=== PATIENT | female | born 1960 | race Hispanic/Latino ===

== ENCOUNTER → 2020-01-20 | Outpatient (CLI) | payer MEDICAID ==
[~2020-01-20] MED LIST: HONEY 1 APPL/ML TUBE TP ONE; LIDOCAINE HCL 4% LTA SOL 4 ML VIAL TP ONE
[2020-01-20 13:17] VITALS: BP 145/121
== END | disposition home or self-care (01) ==
LOC: WHH 09:00
PROVIDERS: ATTEND Family Medicine
DX: T87.89 Other complications of amputation stump (principal); L89.892 Pressure ulcer of other site, stage 2; L97.822 Non-pressure chronic ulcer of other part of left lower leg with fat layer exposed; L89.890 Pressure ulcer of other site, unstageable; L97.812 Non-pressure chronic ulcer of other part of right lower leg with fat layer exposed; G35 Multiple sclerosis; Z74.01 Bed confinement status; Z93.6 Other artificial openings of urinary tract status; Y83.2 Surgical operation with anastomosis, bypass or graft as the cause of abnormal reaction of the patient, or of later complication, without mention of misadventure at the time of the procedure
CPT/HCPCS: 11042; 11045; A6213

== ENCOUNTER → 2020-02-03 | Outpatient (CLI) | payer MEDICAID ==
[~2020-02-03] MED LIST changes: -LIDOCAINE HCL 4% LTA SOL 4 ML VIAL TP ONE
[2020-02-03 12:55] VITALS: BP 102/68
== END | disposition home or self-care (01) ==
LOC: WHH 09:30
PROVIDERS: ATTEND Family Medicine
DX: T87.89 Other complications of amputation stump (principal); L89.893 Pressure ulcer of other site, stage 3; L89.890 Pressure ulcer of other site, unstageable; L89.152 Pressure ulcer of sacral region, stage 2; G35 Multiple sclerosis; Z74.01 Bed confinement status; Z93.6 Other artificial openings of urinary tract status; Y83.2 Surgical operation with anastomosis, bypass or graft as the cause of abnormal reaction of the patient, or of later complication, without mention of misadventure at the time of the procedure
CPT/HCPCS: 11042; 11045; A6213

== ENCOUNTER → 2020-03-02 | Outpatient (CLI) | payer MEDICAID ==
[~2020-03-02] MED LIST changes: -HONEY 1 APPL/ML TUBE TP ONE; +LIDOCAINE HCL 4% LTA SOL 4 ML VIAL TP ONE
== END | disposition home or self-care (01) ==
LOC: WHH 10:50
PROVIDERS: ATTEND Family Medicine
DX: T87.89 Other complications of amputation stump (principal); L89.890 Pressure ulcer of other site, unstageable; L89.893 Pressure ulcer of other site, stage 3; G35 Multiple sclerosis; Z74.01 Bed confinement status; Z89.612 Acquired absence of left leg above knee; Y83.5 Amputation of limb(s) as the cause of abnormal reaction of the patient, or of later complication, without mention of misadventure at the time of the procedure
CPT/HCPCS: 11042; A6021; A6197

== ENCOUNTER → 2020-03-16 | Outpatient (CLI) | payer MEDICAID ==
[~2020-03-16] MED LIST changes: +HONEY 1 APPL/ML TUBE TP ONE; -LIDOCAINE HCL 4% LTA SOL 4 ML VIAL TP ONE; +LIDOCAINE/PRILOCAINE CREAM 5GM TUBE TP ONE
== END | disposition home or self-care (01) ==
LOC: WHH 13:00
PROVIDERS: ATTEND Family Medicine
DX: T87.89 Other complications of amputation stump (principal); L89.892 Pressure ulcer of other site, stage 2; L97.826 Non-pressure chronic ulcer of other part of left lower leg with bone involvement without evidence of necrosis; L89.150 Pressure ulcer of sacral region, unstageable; L98.491 Non-pressure chronic ulcer of skin of other sites limited to breakdown of skin; L89.890 Pressure ulcer of other site, unstageable; L97.511 Non-pressure chronic ulcer of other part of right foot limited to breakdown of skin; L97.811 Non-pressure chronic ulcer of other part of right lower leg limited to breakdown of skin; L89.893 Pressure ulcer of other site, stage 3; G35 Multiple sclerosis; Z74.01 Bed confinement status
CPT/HCPCS: 11042; 11045; 17250; A6213; J3490

== ENCOUNTER → 2020-03-23 | Outpatient (CLI) | payer MEDICAID ==
[~2020-03-23] MED LIST changes: -HONEY 1 APPL/ML TUBE TP ONE; +LIDOCAINE HCL 4% LTA SOL 4 ML VIAL TP ONE; -LIDOCAINE/PRILOCAINE CREAM 5GM TUBE TP ONE
== END | disposition home or self-care (01) ==
LOC: WHH 13:00
PROVIDERS: ATTEND Family Medicine
DX: T87.89 Other complications of amputation stump (principal); L89.892 Pressure ulcer of other site, stage 2; L97.826 Non-pressure chronic ulcer of other part of left lower leg with bone involvement without evidence of necrosis; L89.150 Pressure ulcer of sacral region, unstageable; L98.491 Non-pressure chronic ulcer of skin of other sites limited to breakdown of skin; L89.890 Pressure ulcer of other site, unstageable; L97.511 Non-pressure chronic ulcer of other part of right foot limited to breakdown of skin; L97.811 Non-pressure chronic ulcer of other part of right lower leg limited to breakdown of skin; L89.893 Pressure ulcer of other site, stage 3; G35 Multiple sclerosis; Z74.01 Bed confinement status; Y83.2 Surgical operation with anastomosis, bypass or graft as the cause of abnormal reaction of the patient, or of later complication, without mention of misadventure at the time of the procedure
CPT/HCPCS: 11042; 11045; A6209

== ENCOUNTER → 2020-03-30 | Outpatient (CLI) | payer MEDICAID | END | disposition home or self-care (01) | LOC: WHH 13:25 | PROVIDERS: ATTEND Family Medicine | DX: T87.89 Other complications of amputation stump (principal); L89.892 Pressure ulcer of other site, stage 2; L97.826 Non-pressure chronic ulcer of other part of left lower leg with bone involvement without evidence of necrosis; L89.150 Pressure ulcer of sacral region, unstageable; L98.491 Non-pressure chronic ulcer of skin of other sites limited to breakdown of skin; L89.890 Pressure ulcer of other site, unstageable; L97.511 Non-pressure chronic ulcer of other part of right foot limited to breakdown of skin; L97.811 Non-pressure chronic ulcer of other part of right lower leg limited to breakdown of skin; L89.893 Pressure ulcer of other site, stage 3; G35 Multiple sclerosis; Z74.01 Bed confinement status; Y83.5 Amputation of limb(s) as the cause of abnormal reaction of the patient, or of later complication, without mention of misadventure at the time of the procedure | CPT/HCPCS: 11042; 11045; A6209 ×2; A6213 ==

== ENCOUNTER → 2020-04-13 | Outpatient (CLI) | payer MEDICAID | END | disposition home or self-care (01) | LOC: WHH 13:30 | PROVIDERS: ATTEND Family Medicine | DX: T87.89 Other complications of amputation stump (principal); L89.892 Pressure ulcer of other site, stage 2; L97.822 Non-pressure chronic ulcer of other part of left lower leg with fat layer exposed; L89.150 Pressure ulcer of sacral region, unstageable; L98.491 Non-pressure chronic ulcer of skin of other sites limited to breakdown of skin; L89.890 Pressure ulcer of other site, unstageable; L97.511 Non-pressure chronic ulcer of other part of right foot limited to breakdown of skin; L97.811 Non-pressure chronic ulcer of other part of right lower leg limited to breakdown of skin; L89.893 Pressure ulcer of other site, stage 3; G35 Multiple sclerosis; Z74.01 Bed confinement status; Y83.5 Amputation of limb(s) as the cause of abnormal reaction of the patient, or of later complication, without mention of misadventure at the time of the procedure | CPT/HCPCS: A6209 ×2; G0463 ==

== ENCOUNTER → 2020-05-22 | Outpatient (CLI) | payer MEDICAID ==
[~2020-05-22] MED LIST changes: +LIDOCAINE HCL 2% JELLY 5 ML TP ONE; -LIDOCAINE HCL 4% LTA SOL 4 ML VIAL TP ONE
== END | disposition home or self-care (01) ==
LOC: WHH 09:00
PROVIDERS: ATTEND Family Medicine
DX: T87.89 Other complications of amputation stump (principal); L89.154 Pressure ulcer of sacral region, stage 4; L98.496 Non-pressure chronic ulcer of skin of other sites with bone involvement without evidence of necrosis; L89.892 Pressure ulcer of other site, stage 2; L97.822 Non-pressure chronic ulcer of other part of left lower leg with fat layer exposed; L89.890 Pressure ulcer of other site, unstageable; L97.811 Non-pressure chronic ulcer of other part of right lower leg limited to breakdown of skin; L97.518 Non-pressure chronic ulcer of other part of right foot with other specified severity; L89.893 Pressure ulcer of other site, stage 3; G35 Multiple sclerosis; Z74.01 Bed confinement status; Y83.5 Amputation of limb(s) as the cause of abnormal reaction of the patient, or of later complication, without mention of misadventure at the time of the procedure
CPT/HCPCS: 11042; 11045; A6209 ×2